=== PATIENT | female | born 1985 | race Caucasian/White ===

== ENCOUNTER 2017-06-05 13:33 | Inpatient (IN) | payer BC ==
[~2017-06-05] VITALS: Ht 180.3 cm; Wt 128.8 kg
[2017-06-06] MEDS ORDERED: LACTATED RINGERS 1000ML 1,000 ML IV PRN (16:28)
[2017-06-06 17:09] LABS: APPEARANCE,URINE Clear (CLEAR); BILIRUBIN,URINE Negative (NEGATIVE); COLOR,URINE Yellow (YELLOW); GLUCOSE, URINE (UA) Negative (NEGATIVE); HEMATOCRIT 35.6 % (36-48); KETONES,URINE Negative (NEGATIVE); LEUKOCYTE ESTERASE ,URINE Negative (NEGATIVE); MEAN CORPUSCULAR HEMOGLOBIN 30.5 pg (27.0-33.0); MEAN CORPUSCULAR VOLUME 87.1 fL (79-99); NITRATE,URINE Negative (NEGATIVE); NUCLEATED RED BLOOD CELLS 0.1 % (0.0-0.19); OCCULT BLOOD,URINE Negative (NEGATIVE); PH,URINE 6.5 (5.0-8.0); PLATELET COUNT (AUTO) 207 K/uL (130-400); PROTEIN,URINE Negative (NEGATIVE); RED BLOOD CELL COUNT(AUTO) 4.09 MIL/uL (4.00-5.50); UROBILINOGEN,URINE 0.2 mg/dL (0.2-1.0); WHITE BLOOD COUNT (AUTO) 10.5 K/uL (4.8-10.8)
[2017-06-06 17:20] LABS: CREATININE 0.6 mg/dL (0.5-1.5); POTASSIUM 3.8 mmol/L (3.5-5.1)
[2017-06-06 17:21] LABS: INR 0.86 (0.85-1.15); PARTIAL THROMBOPLASTIN TIME 25.7 SEC (26.3-35.5); PROTHROMBIN TIME 9.1 SEC (9.6-11.6)
[2017-06-06 17:25] LABS: ALBUMIN 2.7 g/dL (3.5-5.0); BILIRUBIN,TOTAL 0.3 mg/dL (0.2-1.0); TOTAL PROTEIN, SERUM 6.2 g/dL (6.0-8.3); URIC ACID 4.1 mg/dL (2.6-7.2)
[2017-06-06] MEDS ORDERED: AMPICILLIN 2GM+NS 100ML 100 ML IV ONE (17:25)
[2017-06-06] MEDS ORDERED: AMPICILLIN 2GM+NS 100ML 100 ML IV SCH (18:00)
[2017-06-06] MEDS: AMPICILLIN 1GM+NS 50ML 50 ML IV SCH (21:28)
[2017-06-07] MEDS: AMPICILLIN 1GM+NS 50ML 50 ML IV SCH ×3 (01:24→09:25)
[2017-06-07] MEDS ORDERED: LACTATED RINGERS 1000ML 1,000 ML IV ONE ×2 (05:29→15:07)
[2017-06-07] MEDS ORDERED: OXYTOCIN 10 USP UNITS/ML ONE ×2 (05:29→15:07)
[2017-06-07] MEDS ORDERED: OXYTOCIN 10 USP UNITS/ML 20 UNIT in LACTATED RINGERS 1000ML 1,000 ML IV SCH (06:00)
[2017-06-07 06:59] LABS: RAPID PLASMA REAGIN NONREACTIVE (NONREACTIVE)
[2017-06-07] MEDS ORDERED: MEPERIDINE-PF 50 MG/ML SYG IVP PRN (09:45)
[2017-06-07] MEDS ORDERED: PROMETHAZINE HCL 25 MG/ML 1ML AMPULE IM PRN (09:45)
[2017-06-07] MEDS ORDERED: LANOLIN 30GM OINTMENT TP PRN (13:15)
[2017-06-07] MEDS ORDERED: MEASLES/MUMPS/RUBELLA VACCINE, LIVE 0.5 ML/VIAL SQ PRN (13:15)
[2017-06-07] MEDS ORDERED: WITCH HAZEL 1 PAD TP PRN (13:15)
[2017-06-07] MEDS ORDERED: ACETAMINOPHEN-CODEINE 300/30MG TAB PO PRN (13:15)
[2017-06-07] MEDS ORDERED: DIPH,PERTUSS(ACELL),TET VAC/PF 0.5 ML VIAL IM PRN (13:15)
[2017-06-07] MEDS ORDERED: BENZOCAINE/LANOLIN/ALOE VERA 60 ML AEROSOL TP PRN (13:15)
[2017-06-07 15:40] VITALS: BP 143/85
[2017-06-07] MEDS ORDERED: PREN-154 PO (16:08)
[2017-06-07 20:00] VITALS: BP 145/81
[2017-06-07] MEDS: DOCUSATE SODIUM 100 MG CAP PO SCH (21:27)
[2017-06-07] MEDS: IBUPROFEN 800 MG TAB PO PRN (21:28)
[2017-06-08] VITALS: BP 116/56
[2017-06-08 04:00] VITALS: BP 115/63
[2017-06-08 07:45] VITALS: BP 120/68
[2017-06-08] MEDS: DOCUSATE SODIUM 100 MG CAP PO SCH (08:56)
[2017-06-08] MEDS: IBUPROFEN 800 MG TAB PO PRN ×2 (08:57→17:06)
[2017-06-08 11:23] VITALS: BP 121/74
[2017-06-08 13:09] LABS: HEPATITIS Bs ANTIGEN SCREEN P Negative (Negative)
[2017-06-08 15:18] VITALS: BP 134/80
== END 2017-06-08 18:00 | disposition home or self-care (01) | DRG 775 ==
LOC: EDSTATUS 16:16 → LDH 06-06 16:16 → WSH 06-07 15:40
PROVIDERS: ADMIT Specialist; ATTEND Specialist
PROC: 10E0XZZ Delivery of Products of Conception, External Approach (ICD-10-PCS; principal; 2017-06-07)
PROC: 0KQM0ZZ Repair Perineum Muscle, Open Approach (ICD-10-PCS; 2017-06-07)
PROC: 3E0234Z Introduction of Serum, Toxoid and Vaccine into Muscle, Percutaneous Approach (ICD-10-PCS; 2017-06-07)
PROC: 3E0134Z Introduction of Serum, Toxoid and Vaccine into Subcutaneous Tissue, Percutaneous Approach (ICD-10-PCS; 2017-06-07)
DX: O14.04 Mild to moderate pre-eclampsia, complicating childbirth (principal); O70.1 Second degree perineal laceration during delivery; O99.824 Streptococcus B carrier state complicating childbirth; Z37.0 Single live birth; Z3A.40 40 weeks gestation of pregnancy; Z23 Encounter for immunization
CPT/HCPCS: 36415; 80053; 81003; 84550; 85027; 85384; 85610; 85730; 86592; 86701; 86850; 86900; 86901; 87340; 87390; A4606; J0290; J2175; J2550; J2590; J7120

== ENCOUNTER 2024-11-10 07:27 | Day surgery (SDC) | payer BC ==
[2024-11-09 09:39] LABS: IMMATURE GRANULOCYTE ABSOLUTE 0.02 K/uL (0-1); NUCLEATED RED BLOOD CELLS 0.0 % (0.0-0.19); PLATELET COUNT (AUTO) 237 K/uL (130-400); RED BLOOD CELL COUNT(AUTO) 4.39 MIL/uL (4.00-5.50); RED CELL DISTRIBUTION WIDTH 12.6 % (11.0-15.5); WHITE BLOOD COUNT (AUTO) 6.9 K/uL (4.8-10.8)
[2024-11-09 09:45] VITALS: BP 121/64; PULSE 74; RESP 14; TEMP 98.1
[2024-11-09 09:53] LABS: INR 0.95 (0.85-1.15)
[2024-11-09 09:57] LABS: ASPARTATE AMINOTRANSFERASE 11.0 U/L (10-37); CREATININE 0.7 mg/dL (0.5-1.0); GLOMERULAR FILTR. RATE CALC 113.0 mL/min (>90); GLUCOSE,RANDOM 85.0 mg/dL (70-105); SODIUM SERUM 144.0 mmol/L (136-145); TOTAL PROTEIN, SERUM 7.1 g/dL (6.0-8.3); UREA NITROGEN, BLOOD 12.0 mg/dL (7-18)
[~2024-11-10] VITALS: Ht 180.3 cm; Wt 105.0 kg
[2024-11-10] VITALS (22 sets, daily range): BP systolic 100–117; BP diastolic 60–75; PULSE 58–94; RESP 12–18; TEMP 97.1–97.6
[2024-11-10] MEDS: PHENAZOpyridine HCL 200 MG TAB 200 MG TABLET ONE (08:41)
[2024-11-10] MEDS: SCOPOLAMINE HYDROBROMIDE 1 EACH ADH..PATCH TD ONE (08:41)
[2024-11-10] MEDS: LACTATED RINGERS 1000ML 1,000 ML IV ONE (08:42)
[2024-11-10] MEDS ORDERED: MIDAZOLAM HCL 1 MG/ML 2ML VIAL ONE (09:42)
[2024-11-10] MEDS ORDERED: LIDOCAINE PF 100MG/5ML (2%) SYRINGE 5ML ONE (10:37)
[2024-11-10] MEDS ORDERED: SUCCINYLCHOLINE CHLORIDE 20 MG/ML 10 ML VIAL ONE (10:38)
[2024-11-10] MEDS ORDERED: GLYCOPYRROLATE 0.2 MG/ML 5 ML VIAL ONE (12:43)
[2024-11-10] MEDS ORDERED: NEOSTIGMINE METHYLSULFATE 1MG/ML IV ONE (12:44)
--- NOTE | 2024-11-10 12:47 | OP ---
Operative Note: DATE OF PROCEDURE: 11/10/24 SURGEON: ABIOLA SERNA MD CERTIFIED NURSING ASSISTANT INSTRUCTOR: [None] ANESTHESIA: [General] ANESTHESIOLOGIST/TELEPHONE MAINTENANCE MECHANIC: [General] PREOPERATIVE DIAGNOSIS: [menorrhagia] POSTOPERATIVE DIAGNOSIS: [same] SYNOPSIS: [na] PROCEDURE: [daVinci total laparoscopic hysterectomy, bilateral salpingectomy, cystoscopy] ESTIMATED BLOOD LOSS: [less than 100 cc] INDICATIONS: [na] DESCRIPTION OF PROCEDURE: [The patient was visited with her sister in the holding area and the operation was stated in plain [place]ian and she had no additional questions and was ready to proceed. She was taken to the operating room and placed under general anesthesia with mallika hose and scds on and functioning prior, then prepped and draped in the usual sterile fashion in the dorsal lithodomy position in the [facility]. A time out was taken to confirm the patient's identity, her allergies, medication administration and the procedure. A weighted speculum was placed in the vagina and the anterior lip of the cervix was grasped and uterus sounded to about 8 cm and the large vcare manipulator was sutred into position, a bellamy catheter was placed and drained orange urine. The surgeon's gloves were changed and the patient was placed flat and 0.025% marcaine was infiltrated supraumbilically and a 12 mm incision was made, the Veress needle was passed and intraperitoneal placement was confirmed with sterile saline and the drop test. The abdomen was insufflated to a good dome of co2 and the direct visualization davinci camera trocar and sleeve were placed with intraperitoneal placement confirmed and the pelvis was examined, the patient was placed in steepest trendelenberg and brought out as much as possible to keep the small bowel from re intruding into the pelvis, infiltration, incision and placement of a left and right sided davinci trocar and sleeve were carried out under direct visualization atraumatically and omar closes were placed, and the umbilical sleeve was traded for an air seal and omar close was placed. The robot was docked and the fenestrated bipolar and vessel sealer were introduced and first the right and then the left tube were tented up and detached from their mesenteric connections to the level of the uterus and the round, uterovarian and broad ligamens were coagulated and divided down to the level just above the cervix and the anterior andposterior leaves of the broad ligament were and the posterior leaves were divided tobelow the manipulator, and the anterior bladder flap was begun, the monopolar scissors were then used to dissect the loose areolar tissue of the bladder down below the manipulator, the uterine arteries were coagulated and divided and the uterus was amputated from the vagina and brought out the vagina. The area was irrigated and the cuff closed with two v-lock sutures meeting themselves in the midline and an additional two figure of eight imbricating sutures of 2-0 pds were placed. the area was irrigated and found hemostatic. The needles and suture ends were removed, the instruments were removed and the robot was undocked, cystoscopy was performed showing normal bladder interior and normal ureteral orifices effluxing jets of orange urine. Approx 100 cc of normal saline was left in the bladder for a later voiding trial. The surgeon's gloves were changed and the abdomen desufflated, sleeves removed, all omar-closes tied and the skin closedsubcuticularly. Sponge, lap and needle counts were correct at the end of the case and the patient was awakened and taken to the recorvery room in stable condition and her sister was notified of her stability. Abiola Serna MD FACOG FACS ] ABIOLA SERNA MD Nov 10, 2024 12:47
--- NOTE | 2024-11-10 17:20 | NUR ---
BLADDER SCAN BLADDER SCAN PERFORMED AT THIS TIME, SHOWING 291 ML OF URINE IN BLADDER. PATIENT DENIES FEELING NEED TO URINATE, DENIES PRESSURE. BLADDER NOT DISTENDED ON PALPATION. CALLED DR. SERNA TO NOTIFY, NO ANSWER. VOICEMAIL LEFT
--- NOTE | 2024-11-10 17:33 | NUR ---
DR. SERNA RETURNED CALL, UPDATE GIVEN ON PATIENT. RECEIVED ORDER TO STRAIGHT CATH PATIENT AND DISCHARGE HOME. PATIENT UPDATED ON PLAN OF CARE.
--- NOTE | 2024-11-10 17:45 | NUR ---
PATIENT VOIDED 300 ML OF PINK-TINGED URINE AT THIS TIME
== END 2024-11-10 18:00 | disposition home or self-care (01) ==
LOC: DAH 07:27
PROVIDERS: ATTEND Obstetrics & Gynecology
DX: N92.0 Excessive and frequent menstruation with regular cycle (principal); N95.9 Unspecified menopausal and perimenopausal disorder; N94.6 Dysmenorrhea, unspecified; N84.0 Polyp of corpus uteri; N93.9 Abnormal uterine and vaginal bleeding, unspecified; Z79.899 Other long term (current) drug therapy; Z98.890 Other specified postprocedural states; Z82.49 Family history of ischemic heart disease and other diseases of the circulatory system; Z79.01 Long term (current) use of anticoagulants
CPT/HCPCS: 58571; S2900; 36415; 80053; 84703; 85025; 85610; 85730; 86850; 86900; 86901; 88305; A4344; J0330; J1100; J1885; J2003; J2250; J2270; J2405; J2704; J2710; J3010; J3490; J7030; J7120; A4215; A4216; A4221; A4222; A4223; A4510; A4600; A4649; A4663; J0665; J0690